=== PATIENT | male | born 1990 | race Caucasian/White ===

== ENCOUNTER 2019-03-01 17:06 | Inpatient (IN) | payer MEDICARE, OTHER ==
--- NOTE | 2019-03-01 17:17 | PDOC ---
Attending Attestation - Resident Resident Name: Kenyatta Finley - ED Attending Attestation I have performed the following: I have examined & evaluated the patient, The case was reviewed & discussed with the resident, I agree w/resident's findings & plan, Exceptions are as noted - HPI HPI: 03/01/19 18:57 Patient is a 28-year-old male whose chief complaint is "constipation". He states that although he is having bowel movements, he is not adequately emptying himself. He is getting intermittent lower abdominal pain as well. He is somewhat vague and unclear in describing his symptoms. He admits to intermittent constipation in the past. He states he had "colitis" 3 years ago and had colonoscopy, CT scan, and ultrasound. However, he does not know anything else about his diagnosis and does not recall any treatment. He has had no nausea or vomiting and he has eating normally. He has had no hematemesis melena or bloody stool. After taking Dulcolax today, he had 2 watery bowel movements, but again complains that he did not feel "empty" afterwards. - Physicial Exam PE: 03/01/19 18:59 Physical exam: Afebrile with normal vital signs No pallor or icterus. ENT clear Abdomen nondistended. Bowel sounds normal. There is mild diffuse tenderness over the lower abdomen without guarding or rebound. There is no localization. No CVAT. Rectal exam performed by Dr. Finley was negative. Stool was mid brown. No blood or mucus. Sent for occult blood, which was negative. White blood count was 14,000. Potassium was slightly decreased at 3.4. CT scan is pending. Signed out to Dr. Grullon at [address] scan results. - Medical Decision Making 03/01/19 19:01 Assessment: Does not seem that constipation is the etiology of the patient's complaints. Symptoms described are consistent with IBS. With the elevated WBC , rule out atypical presentation of acute appendicitis Plan: CT and further evaluation depending on results. Signed out to Dr. Grullon [address]
--- NOTE | 2019-03-01 17:28 | PDOC ---
History of Present Illness - General Chief Complaint: Constipation Stated Complaint: CONSTIPATION Time Seen by Provider: 03/01/19 17:12 - History of Present Illness Initial Comments: 03/01/19 17:28 28 yo M PMH colitis, constipation, p/w abdominal pain. Reports that it initially began on Monday, patient went drinking, felt worse on Monday, took home mag citrate on Monday due to not remembering his last bowel movement, followed by lose stools for the next two days. Since Monday, patient reports regular bowel movements, but complains that he "does not feel like I am getting cleaned out". Further complains of low grade abdominal pain, comes in waves, suprapubic and RLQ. Specifically denies CP, SOB, fevers/chills, ALMAZAN, N/V, urinary changes, rectal bleeding, dark stools. Past History - Past Medical History Allergies/Adverse Reactions: Allergies Allergy/AdvReac Type Severity Reaction Status Date / Time No Known Allergies Allergy Unverified 03/01/19 17:08 Home Medications: Ambulatory Orders NK [No Known Home Medication] 03/01/19 Review of Systems - Review of Systems Constitutional: No: Chills, Diaphoresis, Fever HEENTM: No: Recent change in vision, Double Vision, Hearing Loss, Throat Pain, Difficulty Swallowing Respiratory: No: Cough, Orthopnea, Shortness of Breath Cardiac (ROS): No: Chest Pain, Edema, Irregular Heart Rate, Lightheadedness, Palpitations, Chest Tightness ABD/GI: Yes: Constipated, Diarrhea. No: Abdominal Distended, Abd. Pain w/ defecation, Blood Streaked Bowels, Nausea, Vomiting : No: Flank Pain Musculoskeletal: No: Back Pain, Muscle Pain, Muscle Weakness Neurological: No: Headache, Numbness, Tingling, Weakness *Physical Exam - Physical Exam Comments: 03/01/19 17:31 Gen: well-developed, well-nourished, NAD Neuro: AAOX4, CN II-XII intact, FTN intact, EOMI, PERRLA, 5/5 strength, SILT HEENT: atraumatic, normocephalic Neck: trachea midline, supple CV: tachycardic in 100s, regular rhythm, no murmurs, rubs, or gallops Pulm: CTA b/l, no wheezing Abd: soft, non-distended, mild ttp in RLQ and suprapubic regions MSK: full ROM, intact pulses Extr: no edema, no deformities Skin: warm, dry ED Treatment Course - LABORATORY CBC & Chemistry Diagram: 03/02/19 07:30 03/02/19 07:30 Medical Decision Making - Medical Decision Making 03/01/19 17:32 Concerning for colitis v appendicitis v UTI v laxative overuse. - CBC, CMP - stool guaiac - UA/UC - reassess 03/01/19 18:02 WBC 14.2, K 3.4, Cr 1.1. Will give 20 mEQ POP K-Dur, order CT abd/pelvis w/ contrast. Discharge - Discharge Information Problems reviewed: Yes Clinical Impression/Diagnosis: Diverticulitis Condition: Stable - Follow up/Referral - Patient Discharge Instructions - Post Discharge Activity
[2019-03-01] MEDS ORDERED: ACETAMINOPHEN 1000 MG/100 ML VIAL (NON FORMULARY) IVPB ONE (17:33)
[2019-03-01] MEDS ORDERED: ACETAMINOPHEN 500 MG TABLET (FP) PO ONE (17:34)
[2019-03-01] MEDS ORDERED: ACETAMINOPHEN 325 MG TABLET (FP) ONE (17:38)
[2019-03-01 17:51] LABS: BASO % 0.4 % (0-2.0); EOS % 0.3 % (0-4.5); HEMATOCRIT 50.6 % (35.4-49); HEMOGLOBIN 17.4 GM/dl (11.7-16.9); LYMPH % 8.2 % (8-40); MCH 31.6 pg (25.7-33.7); MCHC 34.3 g/dl (32.0-35.9); MEAN CELL VOLUME 92.3 fl (80-96); MEAN PLT VOLUME 9.3 fl (7.5-11.1); MONO % 5.7 % (3.8-10.2); NEUT % 85.4 % (42.8-82.8); PLATELET COUNT 265 K/MM3 (134-434); RBC 5.49 M/mm3 (4.00-5.60); RDW 11.9 % (11.9-15.9); WHITE BLOOD COUNT 14.2 K/mm3 (4.0-10.8)
[2019-03-01 17:59] LABS: PHOSPHOROUS 3.1 mg/dl (2.5-4.9)
[2019-03-01 18:00] LABS: ALBUMIN 4.8 g/dl (3.4-5.0); BILIRUBIN,TOTAL 1.6 mg/dl (0.2-1); CALCIUM 9.7 mg/dl (8.5-10); CREATININE 1.1 mg/dl (0.55-1.3); POTASSIUM 3.4 mmol/L (3.5-5.1); TOT PROT 8.8 g/dl (6.4-8.2)
[2019-03-01] MEDS ORDERED: POTASSIUM CHLORIDE TABS 20 MEQ TABLET.ER (FP) PO ONE ×2 (18:01→18:03)
--- NOTE | 2019-03-01 19:19 | PDOC ---
*Physical Exam - Vital Signs Last Vital Signs Temp Pulse Resp BP Pulse Ox 98.2 F 98 H 16 137/94 100 03/01/19 17:07 03/01/19 19:11 03/01/19 17:07 03/01/19 19:11 03/01/19 19:11 ED Treatment Course - LABORATORY CBC & Chemistry Diagram: 03/01/19 17:33 03/01/19 17:33 - ADDITIONAL ORDERS Additional order review: Laboratory Results 03/01/19 03/01/19 03/01/19 17:35 17:35 17:33 Sodium Potassium Chloride Carbon Dioxide Anion Gap BUN Creatinine Est GFR (CKD-EPI)AfAm Est GFR (CKD-EPI)NonAf Random Glucose Calcium Phosphorus 3.1 Magnesium 2.0 Total Bilirubin AST ALT Alkaline Phosphatase Total Protein Albumin Lipase 121 Urine Color Yellow Urine Appearance Clear Urine pH 5.5 Urine Protein Negative Urine Glucose (UA) Negative Urine Ketones 3+ H Urine Blood Negative Urine Nitrite Negative Urine Bilirubin 1+ H Urine Urobilinogen 0.2 Ur Leukocyte Esterase Negative Stool Occult Blood Negative 03/01/19 17:33 Sodium 137 Potassium 3.4 L Chloride 98 Carbon Dioxide 26 Anion Gap 13 BUN 15.0 Creatinine 1.1 Est GFR (CKD-EPI)AfAm 104.59 Est GFR (CKD-EPI)NonAf 90.24 Random Glucose 86 Calcium 9.7 Phosphorus Magnesium Total Bilirubin 1.6 H AST 16 ALT 18 Alkaline Phosphatase 91 Total Protein 8.8 H Albumin 4.8 Lipase Urine Color Urine Appearance Urine pH Urine Protein Urine Glucose (UA) Urine Ketones Urine Blood Urine Nitrite Urine Bilirubin Urine Urobilinogen Ur Leukocyte Esterase Stool Occult Blood 03/01/19 17:33 RBC 5.49 MCV 92.3 MCHC 34.3 RDW 11.9 MPV 9.3 Neutrophils % 85.4 H Lymphocytes % 8.2 Monocytes % 5.7 Eosinophils % 0.3 Basophils % 0.4 - Medications Given in the ED: ED Medications Discontinued Medications Generic Name Dose Route Start Last Admin Trade Name Freq PRN Reason Stop Dose Admin Acetaminophen 1,000 mg 03/01/19 17:33 03/01/19 18:57 Ofirmev Injection - IVPB 03/01/19 17:34 Not Given ONCE ONE Acetaminophen 975 mg 03/01/19 17:34 03/01/19 17:40 Tylenol - PO 03/01/19 17:35 975 mg ONCE ONE Administration Potassium Chloride 20 meq 03/01/19 18:01 03/01/19 18:05 K-Dur - PO 03/01/19 18:02 20 meq ONCE ONE Administration ED Progress Note - Progress Note Progress Note: 03/01/19 19:19 This is a 28-year-old male whose care was transferred to nd from Dr. Vivian corona at 1900 hrs. Patient comes in complaining of lower abdominal pain. Patient did have an elevated white count and a CAT scan was done but is pending. We will follow-up results of CAT scan 03/01/19 20:17 CAT scan shows diverticulitis with microperforation Patient given Zosyn IV fluids and will be admitted 03/01/19 20:[address] Fernandez who will consult on the patient. Dr. Fernandez recommends that patient be admitted to the hospitalist service, be given Zosyn, ID consult obtained for tomorrow to continue the Zosyn, and n.p.o. Discharge - Discharge Information Problems reviewed: Yes Clinical Impression/Diagnosis: Diverticulitis Condition: Stable - Admission Yes - Follow up/Referral - Patient Discharge Instructions - Post Discharge Activity
[2019-03-01] MEDS ORDERED: KETOROLAC TROMETHAMINE 60 MG/2 ML VIAL IM ONE (19:47)
[2019-03-01] MEDS ORDERED: PIPERACILLIN/TAZOB 4.5 GM 4.5 GM in DEXTROSE 5%-WATER 100 ML IVPB ONE (20:17)
[2019-03-01] MEDS ORDERED: PIPERACILLIN/TAZOBACTAM 4.5 GM VIAL IVPB ONE (20:19)
[2019-03-01] MEDS ORDERED: SODIUM CHLORIDE 1,000 ML IV ONE (20:19)
[2019-03-01] MEDS ORDERED: DEXTROSE 5%-0.45% SALINE 1,000 ML IV SCH (21:15)
--- NOTE | 2019-03-01 22:38 | HP ---
CHIEF COMPLAINT: Lower Abdominal Pain, Constipation PCP: HISTORY OF PRESENT ILLNESS: This is a 28 y/o man with a PMHx of ?Colitis (3-4 yrs ago) Constipation. Who presents to the ED with intermittent lower abdominal pain with constipation started last weekend. Patient reports being constipated and feeling bloated for several days. He reports taking a laxative and increasing his fiber intake with minimal results-small amount of stool. Patient reports having continued lower abdominal pressure, worse with movement. Patient denies melena, hematochezia. Patient denies fever, chills, cough, SOB, CP, palpitations, N/V, dysuria. ER course was notable for: (1) CTAP-Acute Sigmoid Diverticulitis with localized perforation, No abscess, diffuse hepatic steatosis (2) WBC- 14.2 (3) K- 3.4 Recent Travel: None PAST MEDICAL HISTORY: See HPI PAST SURGICAL HISTORY: Left leg muscle repair (childhood) Social History: Smoking: Denies Alcohol: Socially Drugs: Denies Allergies No Known Allergies Allergy (Unverified 03/01/19 17:08) HOME MEDICATIONS: Home Medications Medication Instructions Recorded NK [No Known Home Medication] 03/01/19 REVIEW OF SYSTEMS CONSTITUTIONAL: Absent: fever, chills, diaphoresis, generalized weakness, malaise, loss of appetite, weight change HEENT: Absent: rhinorrhea, nasal congestion, throat pain, throat swelling, difficulty swallowing, mouth swelling, ear pain, eye pain, visual changes CARDIOVASCULAR: Absent: chest pain, syncope, palpitations, irregular heart rate, lightheadedness , peripheral edema RESPIRATORY: Absent: cough, shortness of breath, dyspnea with exertion, orthopnea, wheezing, stridor, hemoptysis GASTROINTESTINAL: abdominal pain, constipation Absent: abdominal distension, nausea, vomiting, diarrhea, melena, hematochezia GENITOURINARY: Absent: dysuria, frequency, urgency, hesitancy, hematuria, flank pain, genital pain MUSCULOSKELETAL: Absent: myalgia, arthralgia, joint swelling, back pain, neck pain SKIN: Absent: rash, itching, pallor HEMATOLOGIC/IMMUNOLOGIC: Absent: easy bleeding, easy bruising, lymphadenopathy, frequent infections ENDOCRINE: Absent: unexplained weight gain, unexplained weight loss, heat intolerance, cold intolerance NEUROLOGIC: Absent: headache, focal weakness or paresthesias, dizziness, unsteady gait, seizure, mental status changes, bladder or bowel incontinence PSYCHIATRIC: Absent: anxiety, depression, suicidal or homicidal ideation, hallucinations. PHYSICAL EXAMINATION Vital Signs - 24 hr 03/01/19 03/01/19 17:07 19:11 Temperature 98.2 F Pulse Rate 102 H Pulse Rate [ 98 H Left] Respiratory 16 Rate Blood Pressure 138/100 Blood Pressure 137/94 [Right Arm] O2 Sat by Pulse 100 100 Oximetry (%) GENERAL: Awake, alert, and fully oriented, in no acute distress. HEAD: Normal with no signs of trauma. EYES: Pupils equal, round and reactive to light, extraocular movements intact, sclera anicteric, conjunctiva clear. No lid lag. EARS, NOSE, THROAT: Dry mucous membranes. Ears normal, nares patent, oropharynx clear without exudates. NECK: Normal range of motion, supple without lymphadenopathy, JVD, or masses. LUNGS: Breath sounds equal, clear to auscultation bilaterally. No wheezes, and no crackles. No accessory muscle use. HEART: Regular rate and rhythm, normal S1 and S2 without murmur, rub or gallop. ABDOMEN: Tenderness LLQ, hypoactive bowel sounds. Soft, not distended, no guarding, no rebound, no masses. No hepatomegaly or splenomegaly. MUSCULOSKELETAL: Normal range of motion at all joints. No bony deformities or tenderness. No CVA tenderness. UPPER EXTREMITIES: 2+ pulses, warm, well-perfused. No cyanosis. No clubbing. No peripheral edema. LOWER EXTREMITIES: 2+ pulses, warm, well-perfused. No calf tenderness. No peripheral edema. NEUROLOGICAL: Cranial nerves II-XII intact. Normal speech. Gait not observed. PSYCHIATRIC: Cooperative. Good eye contact. Appropriate mood and affect. SKIN: Warm, dry, normal turgor, no rashes or lesions noted, normal capillary refill. Laboratory Results - last 24 hr 03/01/19 03/01/19 03/01/19 17:33 17:33 17:33 WBC 14.2 H RBC 5.49 Hgb 17.4 H Hct 50.6 H MCV 92.3 MCH 31.6 MCHC 34.3 RDW 11.9 Plt Count 265 MPV 9.3 Absolute Neuts (auto) 12.1 Neutrophils % 85.4 H Lymphocytes % 8.2 Monocytes % 5.7 Eosinophils % 0.3 Basophils % 0.4 Sodium 137 Potassium 3.4 L Chloride 98 Carbon Dioxide 26 Anion Gap 13 BUN 15.0 Creatinine 1.1 Est GFR (CKD-EPI)AfAm 104.59 Est GFR (CKD-EPI)NonAf 90.24 Random Glucose 86 Calcium 9.7 Phosphorus 3.1 Magnesium 2.0 Total Bilirubin 1.6 H AST 16 ALT 18 Alkaline Phosphatase 91 Total Protein 8.8 H Albumin 4.8 Lipase 121 Urine Color Urine Appearance Urine pH Urine Protein Urine Glucose (UA) Urine Ketones Urine Blood Urine Nitrite Urine Bilirubin Urine Urobilinogen Ur Leukocyte Esterase Stool Occult Blood 03/01/19 03/01/19 17:35 17:35 WBC RBC Hgb Hct MCV MCH MCHC RDW Plt Count MPV Absolute Neuts (auto) Neutrophils % Lymphocytes % Monocytes % Eosinophils % Basophils % Sodium Potassium Chloride Carbon Dioxide Anion Gap BUN Creatinine Est GFR (CKD-EPI)AfAm Est GFR (CKD-EPI)NonAf Random Glucose Calcium Phosphorus Magnesium Total Bilirubin AST ALT Alkaline Phosphatase Total Protein Albumin Lipase Urine Color Yellow Urine Appearance Clear Urine pH 5.5 Urine Protein Negative Urine Glucose (UA) Negative Urine Ketones 3+ H Urine Blood Negative Urine Nitrite Negative Urine Bilirubin 1+ H Urine Urobilinogen 0.2 Ur Leukocyte Esterase Negative Stool Occult Blood Negative ASSESSMENT/PLAN: This is a 28 y/o man with no PMHx. Admitted for Acute Diverticulitis, for further evaluation of their emergent condition. Plan: See Problem List FEN D51/2NS@100ml/hr K repleted, continue to monitor NPO DVT ppx OOB SCDs Code Status: Full Code Dispo: Requires Inpatient Care Family Medical History Family History: Unremarkable Problem List - Problem (1) Diverticulitis Assessment/Plan: CTAP report- Acute Sigmoid Diverticulitis with localized perforation. No abscess , diffuse hepatic steatosis Appreciate Surgical consult- notified and aware, per Dr. Dior. Rich initiated in ED, will continue Appreciate ID consult NPO Continue IVFs Ofirmev prn Monitor CBC, BMP Monitor vitals Code(s): K57.92 - DVTRCLI OF INTEST, PART UNSP, W/O PERF OR ABSCESS W/O BLEED Visit type - Emergency Visit Emergency Visit: Yes ED Registration Date: 03/01/19 Care time: The patient presented to the Emergency Department on the above date and was hospitalized for further evaluation of their emergent condition. - New Patient This patient is new to me today: Yes Date on this admission: 03/01/19 - Critical Care Critical Care patient: No
[2019-03-01 23:41] VITALS: BMI 22.5
[2019-03-02] MEDS ORDERED: ACETAMINOPHEN 1000 MG/100 ML VIAL (NON FORMULARY) IVPB PRN (00:01)
[2019-03-02] MEDS ORDERED: PIPERACILLIN/TAZOBACTAM 3.375 GM VIAL IVPB ONE ×3 (00:20→17:59)
[2019-03-02] MEDS ORDERED: DEXTROSE 5%-WATER - 50 ML IVPB ONE ×3 (00:20→17:59)
[2019-03-02] MEDS: PIPERACILLIN/TAZOB 3.375 GM 3.375 GM in DEXTROSE 5%-WATER - 50 ML IVPB SCH ×3 (02:13→18:04)
[2019-03-02 08:25] LABS: BASO % 0.3 % (0-2.0); CALCIUM 8.5 mg/dl (8.5-10); CREATININE 1.1 mg/dl (0.55-1.3); EOS % 0.7 % (0-4.5); HEMATOCRIT 39.3 % (35.4-49); HEMOGLOBIN 13.7 GM/dl (11.7-16.9); LYMPH % 11.4 % (8-40); MCH 31.9 pg (25.7-33.7); MCHC 34.7 g/dl (32.0-35.9); MEAN CELL VOLUME 91.8 fl (80-96); MEAN PLT VOLUME 9.4 fl (7.5-11.1); MONO % 9.1 % (3.8-10.2); NEUT % 78.5 % (42.8-82.8); PLATELET COUNT 207 K/MM3 (134-434); POTASSIUM 3.6 mmol/L (3.5-5.1); RBC 4.28 M/mm3 (4.00-5.60); RDW 11.9 % (11.9-15.9); WHITE BLOOD COUNT 10.2 K/mm3 (4.0-10.8)
[2019-03-02 10:04] LABS: ALBUMIN 3.4 g/dl (3.4-5.0); BILIRUBIN,DIRECT 0.3 mg/dL (0.0-0.2); TOT PROT 6.3 g/dl (6.4-8.2)
--- NOTE | 2019-03-02 11:55 | PN ---
Progress Note (short form) - Note Progress Note: surgery pt seen and examined. full consult dicated. 28 m with possible colitis history , history of blood in stool, colonoscopy 3 years ago, presents with microperforation of sigmoid colon. wbc normal and no fever on zosyn abd- soft, minimal llq tenderness Plan- pt declines acute surgical intervention. cont medical managment. recommend 5 days iv zosyn and 1 week po augmentin to follow. would keep npo till Monday. can start full liquids then if no tenderness, wbc nml, and afebrile. needs colonoscopy in 6 weeks. would not recommend elective diverticular surgery with diagnosis in doubt in a patient this young.
--- NOTE | 2019-03-02 11:57 | PN ---
Progress Note, Physician History of Present Illness: 28 y.o. male presents with c/o lower abdominal pain for the past 1 wk. He states that he has been feeling constipated and has not been having substantial bowel movements despite use of stool softeners. Describes the pain as 5/10 intensity and worse with movement. Denies episodes of n/v and has not been having fever/chills. Reports having "colitis" several years ago but specifics are unclear. In the ER Pt was noted to have wbc of 14.2K and CT A/P findings suggest sigmoid diverticulitis with localized perforation. Currently he is alert , without distress. He has no other complaints. - Current Medication List Current Medications: Active Medications Acetaminophen (Ofirmev Injection -) 1,000 mg IVPB Q6H PRN PRN Reason: PAIN LEVEL 6-10 Dextrose/Sodium Chloride (D5-1/2ns -) 1,000 mls @ 125 mls/hr IV ASDIR DALTON Last Admin: 03/01/19 22:15 Dose: 125 mls/hr Piperacillin Sod/Tazobactam (Sod 3.375 gm/ Dextrose) 50 mls @ 100 mls/hr IVPB Q8H-IV DALTON; Protocol - Objective Vital Signs: Vital Signs Temperature 98.5 F 03/02/19 06:36 Pulse Rate 91 H 03/02/19 06:36 Respiratory Rate 18 03/02/19 06:36 Blood Pressure 119/66 03/02/19 06:36 O2 Sat by Pulse Oximetry (%) 100 03/01/19 22:00 Labs: CBC, BMP 03/02/19 07:30 03/02/19 07:30
--- NOTE | 2019-03-02 12:04 | CON.ID ---
Consult - History of Present Illness History of Present Illness: 28 y.o. male presents with c/o lower abdominal pain for the past 1 wk. He states that he has been feeling constipated and has not been having substantial bowel movements despite use of stool softeners. Describes the pain as 5/10 intensity and worse with movement. Denies episodes of n/v and has not been having fever/chills. Reports having "colitis" several years ago and had workup done but specifics are unclear. In the ER Pt was noted to have wbc of 14.2K and CT A/P findings suggest sigmoid diverticulitis with localized perforation. Currently he is alert, without distress. He has no other complaints. 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: Alzheimer's, CVA, Dementia, Migraine, Multiple Sclerosis, Peripheral Neuropathy, Parkinson's, Seizure, Syncope, TIA, Vertigo, Other Cardio/Vascular: No: AFIB, Aneurysm, Aortic Insufficiency, Aortic Stenosis, CAD , CHF, Deep Vein Thrombosis, HTN, Hyperlipdemia, IA, Mitral Insufficiency, Mitral Stenosis, Murmur, Pulmonary Hypertension, Other Pulmonary: No: Asthma, Bronchitis, Cancer, COPD, O2 Dependent, Pneumonia, Previously Intubated, Pulmonary Embolus, Pulmonary Fibrosis, Sleep Apnea, Other Gastrointestinal: Yes: Other ("colitis") Hepatobiliary: No: Cirrhosis, Cholelithiasis, Cholecystitis, Choledocholithiasis , Hepatitis A, Hepatitis B, Hepatitis C, Other Renal/: No: Renal Failure, Renal Inusuff, BPH, Cancer, Hematuria, Hemodialysis , Neurogenic Bladder, Renal Calculi, UTI, Other Heme/Onc: No: Anemia, B12 Deficiency, Bleeding Disorder, Cancer, Current Chemotherapy, Current Radiation Therapy, Hemochromatosis, Hypercoaguable State, Myeloproliferative Synd, Sickle Cell Disease, Sickle Cell Trait, Thrombocytopenia, Other Infectious Disease: No: AIDS, C-Diff, Herpes Zoster, HIV, MRSA, STD's, Tuberculosis, VREF, Other Psych: No: Addictions, Anxiety, Bipolar, Depression, Panic, Psychosis, Schizophrenia, Other Musculoskeletal: No: Bursitis, Chronic low back pain, Hemiparesis, Hemiplegia, Osteoarthritis, Paraplegia, Other Rheumatology: No: Fibromyalgia, Gout, Lupus, Rheumatoid Arthritis, Sarcoidosis, Vasculitis, Other ENT: No: Allergic Rhinitis, Sinusitis, Other Endocrine: No: [place]'s Disease, Iliana's Disease, Diabetes Insipidus, Diabetes Mellitus, Hyperparathyroidism, Hyperthyroidism, Hypothyroidism, Osteopenia, SIADH, Other Dermatology: No: Basal Cell, Cellulitis, Eczema, Melanoma, Psoriasis, Squamous Cell, Other - Past Surgical History Past Surgical History: No: None, AAA Repair, AICD, Amputation, Appendectomy, Arthrosocopy, AV Fistula/Graft, Bariatric Surgery, Breast Biopsy, Bypass, CABG, Carotid Endarterectomy, Cataract Removal, Cholecystectomy, Colectomy, Colonoscopy, Colostomy, Craniotomy, , Cystectomy, Hernia Repair, Hysterectomy, Ileal Conduit, Ileosotomy, Joint Replacement, Kidney Transplant, Laminectomy, Liver Transplant, Mastectomy, Nephrectomy, Oopherectomy, Orchiectomy, Permanent Pacemaker, Prostatectomy, Splenectomy, Stent, Thoracotomy , TURP, Tonsillectomy, Tubal Ligation, Upper Endoscopy, Valve Replacement, Vasectomy, Vein Stripping/Ligation - Alcohol/Substance Use Hx Alcohol Use: Yes (SOCIAL) - Smoking History Smoking history: Never smoked Home Medications - Allergies Allergies/Adverse Reactions: Allergies Allergy/AdvReac Type Severity Reaction Status Date / Time No Known Allergies Allergy Unverified 03/01/19 17:08 - Home Medications Home Medications: Ambulatory Orders NK [No Known Home Medication] 03/01/19 Review of Systems - Review of Systems Constitutional: denies: No Symptoms, Chills, Diaphoresis, Fever, Lethargy, Loss of Appetite, Malaise, Night Sweats, Unintentional Wgt. Loss, Weakness, Other Eyes: denies: No Symptoms, Blind Spots, Blurred Vision, Double Vision, Eye Pain , Floaters, Photophobia, Recent Change in Vision, Other HENT: denies: No Symptoms, Difficult Swallowing, Ear Discharge, Ear Pain, Epistaxis, Gingival Bleeding, Hearing Loss, Mouth Swelling, Nasal Congestion, Ocular Prosthesis, Throat Pain, Toothache, Ringing in Ears, Other Neck: denies: No Symptoms, Decreased ROM, Lumps, Pain on Movement, Stiffness, Swollen Glands, Tenderness, Other Cardiovascular: denies: No Symptoms, Chest Pain, Edema, Palpitations, Shortness of Breath, Other Respiratory: denies: No Symptoms, Cough, Exercise Intolerance, Hemoptysis, Orthopnea, PND, Snoring, SOB, SOB on Exertion, Wheezing, Other Gastrointestinal: reports: Abdominal Pain, Bloating Genitourinary: denies: No Symptoms, Burning, Discharge, Dysuria, Flank Pain, Frequency, Hematuria, Incontinence, Lesions, Menses, Pain, Testicular Mass, Testicular Pain, Testicular Swelling, Urgency, Vaginal Bleeding, Other Breasts: denies: No Symptoms Reported, See HPI, Breast Implants, Discharge from Nipple, Lumps, Pain, Skin Changes, Other Musculoskeletal: denies: No Symptoms, Back Pain, Crepitus, Decreased ROM, Extremity Pain, Joint Pain, Joint Swelling, Muscle Pain, Muscle Cramps, Muscle Weakness, Other Integumentary: denies: No Symptoms, Blister, Bruising, Change in Color, Eczema, Erythema, Incision, Lesions, Lump, Pallor, Pruritis, Rash, Wound, Other Neurological: denies: No Symptoms, Change in LOC, Change in Speech, Confusion, Dizziness, Headache, Incoordination, Numbness, Parasthesia, Pre-Existing Deficit , Seizure, Syncope, Tremors, Unsteady Gait, Weakness, Other Endocrine: denies: No Symptoms, Excessive Sweating, Flushing, Increased Hunger, Increased Thirst, Intolerance to Cold, Intolerance to Heat, Unexplained Weight Gain, Unexplained Weight Loss, Other Hematology/Lymphatic: denies: No Symptoms, Easily Bruised, Excessive Bleeding, Swollen Glands, Other Psychiatric: denies: No Symptoms, Altered Sleep Pattern, Anxiety, Depression, Hallucinations, Panic, Paranoia, Suicidal, Other Physical Exam Vital Signs: Vital Signs Temperature 98.5 F 03/02/19 06:36 Pulse Rate 91 H 03/02/19 06:36 Respiratory Rate 18 03/02/19 06:36 Blood Pressure 119/66 03/02/19 06:36 O2 Sat by Pulse Oximetry (%) 100 03/01/19 22:00 Constitutional: Yes: Well Nourished, No Distress, Calm Eyes: Yes: Conjunctiva Clear, EOM Intact HENT: Yes: Atraumatic Neck: Yes: Supple Cardiovascular: Yes: Regular Rate and Rhythm Respiratory: Yes: CTA Bilaterally Gastrointestinal: Yes: Soft, Hyperactive Bowel Sounds, Tenderness (minimal lower abd) Renal/: Yes: WNL Musculoskeletal: Yes: WNL Extremities: Yes: WNL Edema: No Peripheral Pulses WNL: Yes Integumentary: Yes: WNL Neurological: Yes: Alert, Oriented Labs: CBC, BMP 03/02/19 07:30 03/02/19 07:30 Laboratory Tests 03/01/19 03/01/19 03/01/19 17:33 17:33 17:33 WBC 14.2 H RBC 5.49 Hgb 17.4 H Hct 50.6 H MCV 92.3 MCH 31.6 MCHC 34.3 RDW 11.9 Plt Count 265 MPV 9.3 Absolute Neuts (auto) 12.1 Neutrophils % 85.4 H Lymphocytes % 8.2 Monocytes % 5.7 Eosinophils % 0.3 Basophils % 0.4 Sodium 137 Potassium 3.4 L Chloride 98 Carbon Dioxide 26 Anion Gap 13 BUN 15.0 Creatinine 1.1 Est GFR (CKD-EPI)AfAm 104.59 Est GFR (CKD-EPI)NonAf 90.24 Random Glucose 86 Calcium 9.7 Phosphorus 3.1 Magnesium 2.0 Total Bilirubin 1.6 H Direct Bilirubin AST 16 ALT 18 Alkaline Phosphatase 91 Total Protein 8.8 H Albumin 4.8 Lipase 121 Urine Color Urine Appearance Urine pH Urine Protein Urine Glucose (UA) Urine Ketones Urine Blood Urine Nitrite Urine Bilirubin Urine Urobilinogen Ur Leukocyte Esterase Stool Occult Blood 03/01/19 03/01/19 03/02/19 17:35 17:35 07:30 WBC 10.2 RBC 4.28 Hgb 13.7 Hct 39.3 D MCV 91.8 MCH 31.9 MCHC 34.7 RDW 11.9 Plt Count 207 D MPV 9.4 Absolute Neuts (auto) 8.0 Neutrophils % 78.5 Lymphocytes % 11.4 D Monocytes % 9.1 Eosinophils % 0.7 D Basophils % 0.3 Sodium Potassium Chloride Carbon Dioxide Anion Gap BUN Creatinine Est GFR (CKD-EPI)AfAm Est GFR (CKD-EPI)NonAf Random Glucose Calcium Phosphorus Magnesium Total Bilirubin Direct Bilirubin AST ALT Alkaline Phosphatase Total Protein Albumin Lipase Urine Color Yellow Urine Appearance Clear Urine pH 5.5 Urine Protein Negative Urine Glucose (UA) Negative Urine Ketones 3+ H Urine Blood Negative Urine Nitrite Negative Urine Bilirubin 1+ H Urine Urobilinogen 0.2 Ur Leukocyte Esterase Negative Stool Occult Blood Negative 03/02/19 03/02/19 07:30 07:30 WBC RBC Hgb Hct MCV MCH MCHC RDW Plt Count MPV Absolute Neuts (auto) Neutrophils % Lymphocytes % Monocytes % Eosinophils % Basophils % Sodium 137 Potassium 3.6 Chloride 104 Carbon Dioxide 24 Anion Gap 9 BUN 9.0 Creatinine 1.1 Est GFR (CKD-EPI)AfAm 104.59 Est GFR (CKD-EPI)NonAf 90.24 Random Glucose 112 H Calcium 8.5 Phosphorus Magnesium Total Bilirubin 1.0 Direct Bilirubin 0.3 H AST 13 L ALT 13 Alkaline Phosphatase 65 D Total Protein 6.3 L Albumin 3.4 Lipase Urine Color Urine Appearance Urine pH Urine Protein Urine Glucose (UA) Urine Ketones Urine Blood Urine Nitrite Urine Bilirubin Urine Urobilinogen Ur Leukocyte Esterase Stool Occult Blood Imaging - Results Cat Scan: Report Reviewed Problem List - Problems (1) Diverticulitis Code(s): K57.92 - DVTRCLI OF INTEST, PART UNSP, W/O PERF OR ABSCESS W/O BLEED Assessment/Plan 28 y.o. male presents with c/o lower abdominal pain x 1 wk Acute sigmoid diverticulitis with localized perforation -- Continue Zosyn IV -- wbc trended down -- Pt is NPO -- Surgery following continue close monitoring Will follow Thank you
--- NOTE | 2019-03-02 12:25 | PN ---
Physical Exam: SUBJECTIVE: Patient seen and examined at bedside. Has mild mid and left lower quadrant abdominal pain. No nausea, vomiting. OBJECTIVE: Vital Signs Period Temp Pulse Resp BP Sys/Squires Pulse Ox Last 24 Hr 97.8 F-98.5 F 83-102 16-18 119-138/66-100 99-100 GENERAL: The patient is awake, alert, and fully oriented, in no acute distress. LUNGS: Breath sounds equal, clear to auscultation bilaterally, no wheezes, no crackles, no accessory muscle use. HEART: Regular rate and rhythm, S1, S2 without murmur, rub or gallop. ABDOMEN: Soft, mildly teder mid and left lower abdomen, very active bowel sounds no guarding, no rebound EXTREMITIES: 2+ pulses, warm, well-perfused, no edema. NEUROLOGICAL: Cranial nerves II through XII grossly intact. Normal speech Laboratory Results - last 24 hr 03/01/19 03/01/19 03/01/19 17:33 17:33 17:33 WBC 14.2 H RBC 5.49 Hgb 17.4 H Hct 50.6 H MCV 92.3 MCH 31.6 MCHC 34.3 RDW 11.9 Plt Count 265 MPV 9.3 Absolute Neuts (auto) 12.1 Neutrophils % 85.4 H Lymphocytes % 8.2 Monocytes % 5.7 Eosinophils % 0.3 Basophils % 0.4 Sodium 137 Potassium 3.4 L Chloride 98 Carbon Dioxide 26 Anion Gap 13 BUN 15.0 Creatinine 1.1 Est GFR (CKD-EPI)AfAm 104.59 Est GFR (CKD-EPI)NonAf 90.24 Random Glucose 86 Calcium 9.7 Phosphorus 3.1 Magnesium 2.0 Total Bilirubin 1.6 H Direct Bilirubin AST 16 ALT 18 Alkaline Phosphatase 91 Total Protein 8.8 H Albumin 4.8 Lipase 121 Urine Color Urine Appearance Urine pH Urine Protein Urine Glucose (UA) Urine Ketones Urine Blood Urine Nitrite Urine Bilirubin Urine Urobilinogen Ur Leukocyte Esterase Stool Occult Blood 03/01/19 03/01/19 03/02/19 17:35 17:35 07:30 WBC 10.2 RBC 4.28 Hgb 13.7 Hct 39.3 D MCV 91.8 MCH 31.9 MCHC 34.7 RDW 11.9 Plt Count 207 D MPV 9.4 Absolute Neuts (auto) 8.0 Neutrophils % 78.5 Lymphocytes % 11.4 D Monocytes % 9.1 Eosinophils % 0.7 D Basophils % 0.3 Sodium Potassium Chloride Carbon Dioxide Anion Gap BUN Creatinine Est GFR (CKD-EPI)AfAm Est GFR (CKD-EPI)NonAf Random Glucose Calcium Phosphorus Magnesium Total Bilirubin Direct Bilirubin AST ALT Alkaline Phosphatase Total Protein Albumin Lipase Urine Color Yellow Urine Appearance Clear Urine pH 5.5 Urine Protein Negative Urine Glucose (UA) Negative Urine Ketones 3+ H Urine Blood Negative Urine Nitrite Negative Urine Bilirubin 1+ H Urine Urobilinogen 0.2 Ur Leukocyte Esterase Negative Stool Occult Blood Negative 03/02/19 03/02/19 07:30 07:30 WBC RBC Hgb Hct MCV MCH MCHC RDW Plt Count MPV Absolute Neuts (auto) Neutrophils % Lymphocytes % Monocytes % Eosinophils % Basophils % Sodium 137 Potassium 3.6 Chloride 104 Carbon Dioxide 24 Anion Gap 9 BUN 9.0 Creatinine 1.1 Est GFR (CKD-EPI)AfAm 104.59 Est GFR (CKD-EPI)NonAf 90.24 Random Glucose 112 H Calcium 8.5 Phosphorus Magnesium Total Bilirubin 1.0 Direct Bilirubin 0.3 H AST 13 L ALT 13 Alkaline Phosphatase 65 D Total Protein 6.3 L Albumin 3.4 Lipase Urine Color Urine Appearance Urine pH Urine Protein Urine Glucose (UA) Urine Ketones Urine Blood Urine Nitrite Urine Bilirubin Urine Urobilinogen Ur Leukocyte Esterase Stool Occult Blood Active Medications Generic Name Dose Route Start Last Admin Trade Name Freq PRN Reason Stop Dose Admin Acetaminophen 1,000 mg 03/02/19 00:01 Ofirmev Injection - IVPB Q6H PRN PAIN LEVEL 6-10 Dextrose/Sodium Chloride 1,000 mls @ 125 mls/hr 03/01/19 21:15 03/01/19 22:15 D5-1/2ns - IV 125 mls/hr ASDIR DALTON Administration Piperacillin Sod/Tazobactam 50 mls @ 100 mls/hr 03/02/19 18:00 Sod 3.375 gm/ Dextrose IVPB Q8H-IV DALTON Protocol ASSESSMENT/PLAN: 28 year-old male with a PMH significant for one previous episode of colitis x 4 years ago. Admitted for acute diverticulitis. Acute sigmoid diverticulitis with localized perforation --afebrile, leukocytosis has resolved --continue Zosyn --IV fluids --NPO --seen and evaluated by surgery, medical management for now FEN Fluids: D51/2NS@125mL/hr Electrolytes: replete as indicated Nutrition: NPO DVT prophylaxis: oob, ambulation, TEDs Dispo: continues to require inpatient care. Full code. Visit type - Emergency Visit Emergency Visit: Yes ED Registration Date: 03/01/19 Care time: The patient presented to the Emergency Department on the above date and was hospitalized for further evaluation of their emergent condition. - New Patient This patient is new to me today: Yes Date on this admission: 03/02/19 - Critical Care Critical Care patient: No
--- NOTE | 2019-03-02 13:01 | CONS ---
DATE OF CONSULTATION: 03/02/2019 REASON FOR CONSULTATION: Complicated diverticulitis. This is an emergency room consultation as requested by the emergency room physician. BRIEF HISTORY: This is a 28-year-old male who has been told he has colitis in the past. Had a colonoscopy approximately 3 years ago. Does not take any medication. He presents to [facility] complaining of lower abdominal pain. In the past he has had blood per stool. He describes not having any recent "flare-ups." While at the emergency room he was noted to have a white blood cell count of 14,000 and he had a CAT scan of his abdomen and pelvis which was suggestive of a microperforation in the sigmoid colon consistent with complicated diverticulitis. Patient was admitted to the hospital. He was placed on Zosyn antibiotic. Overnight his white blood cell count has returned to normal. He has had no fevers. He denies nausea. Denies vomiting. Did admit to having constipation and taking laxatives. PAST MEDICAL HISTORY: Otherwise negative. PAST SURGICAL HISTORY: A leg operation. SOCIAL HISTORY: Positive for occasional alcohol consumption. Negative for tobacco. ALLERGIES: He has no known drug allergies. MEDICATIONS: He takes no medications. REVIEW OF SYSTEMS:General: Denies fever or malaise. Cardiac: Denies chest pain or palpitations. Respiratory: Denies shortness of breath or wheeze. Gastrointestinal: As in HPI. Genitourinary: Denies dysuria. Musculoskeletal: Denies joint pain. Psychiatric: Denies anxiety, depression or hearing voices. PHYSICAL EXAMINATION: General: This is a thin 28-year-old male in no distress. Vital Signs: He is afebrile. His vital signs are stable. HEENT: His head is normocephalic. His sclerae are anicteric Neck: Supple. Chest: Clear. Abdomen: Soft. He has minimal left lower quadrant tenderness. He has no surgical scars. He has no hernias. Extremities: Have no edema. LABORATORY DATA: On review of his laboratory his white blood cell count is normal at 10.2. There is no shift. His chemistries are unremarkable with an albumin of 4.8 on admission. His lipase is normal. His urinalysis has positive ketones but otherwise unremarkable. IMAGING: As in HPI. ASSESSMENT: This is a 28-year-old male with a possible history of colitis with a colonoscopy at the age of 25 presents with constipation, abdominal pain and computed axial tomography evidence of a perforated sigmoid colon that the correctional supply supervisor feels may be diverticulitis. RECOMMENDATIONS: At this point the patient is clinically well. Although it is possible that it is perforated diverticulitis he may have a different underlying cause such as inflammatory bowel disease. I have offered the patient exploratory surgery with sigmoid colectomy and colostomy and he declines. He does not wish to have a colostomy. He is willing to delay diagnosis of his condition. At this point since he is doing well would continue intravenous antibiotics. Would recommend a minimum of 5 days of intravenous antibiotics while in the hospital. Since it is the weekend and he is being kept at a hospital that does not have operating room capabilities until Monday and any surgery would require transfer would recommend not starting diet until Monday morning. If he has no tenderness, if he remains afebrile and if his white blood cell count remains normal. At that point would start on a liquid diet. Ultimately he will need a colonoscopy in 6 weeks. He can consider eventual elective surgery if this is felt to be diverticulitis. However, in my opinion since this is not behaving as a complicated diverticulitis and since there is a possible history of colitis I would be loath to recommend a major elective operation with risk of complications when we are uncertain of the diagnosis or there may not be future recurrence. At this point recommend continued medical management. Will be available as needed. DO EVELIN MARTINS/[id number]
[2019-03-03] MEDS ORDERED: PIPERACILLIN/TAZOBACTAM 3.375 GM VIAL IVPB ONE ×4 (00:58→23:18)
[2019-03-03] MEDS ORDERED: DEXTROSE 5%-WATER - 50 ML IVPB ONE ×4 (00:59→23:18)
[2019-03-03] MEDS: PIPERACILLIN/TAZOB 3.375 GM 3.375 GM in DEXTROSE 5%-WATER - 50 ML IVPB SCH ×3 (01:31→17:41)
[2019-03-03 09:29] LABS: BASO % 0.6 % (0-2.0); EOS % 2.2 % (0-4.5); HEMATOCRIT 43.3 % (35.4-49); HEMOGLOBIN 14.3 GM/dl (11.7-16.9); MCH 30.9 pg (25.7-33.7); MEAN CELL VOLUME 93.4 fl (80-96); MEAN PLT VOLUME 9.8 fl (7.5-11.1); MONO % 8.9 % (3.8-10.2); NEUT % 69.3 % (42.8-82.8); PLATELET COUNT 210 K/MM3 (134-434); RBC 4.63 M/mm3 (4.00-5.60); RDW 11.9 % (11.9-15.9); WHITE BLOOD COUNT 8.1 K/mm3 (4.0-10.8)
[2019-03-03 09:36] LABS: ALBUMIN 3.4 g/dl (3.4-5.0); BILIRUBIN,TOTAL 0.7 mg/dl (0.2-1); CALCIUM 8.9 mg/dl (8.5-10); CREATININE 1.1 mg/dl (0.55-1.3); POTASSIUM 3.3 mmol/L (3.5-5.1); TOT PROT 6.6 g/dl (6.4-8.2)
[2019-03-03] MEDS ORDERED: POTASSIUM CHLORIDE ORAL LIQUID 20 MEQ/15 ML PO ONE (10:30)
--- NOTE | 2019-03-03 11:17 | PN ---
Physical Exam: SUBJECTIVE: Patient seen and examined at bedside. LLQ pain is better, not completely gone. OBJECTIVE: Vital Signs Period Temp Pulse Resp BP Sys/Squires Pulse Ox Last 24 Hr 97.5 F-99.1 F 84-99 17-19 113-131/68-79 99-100 GENERAL: The patient is awake, alert, and fully oriented, in no acute distress. LUNGS: Breath sounds equal, clear to auscultation bilaterally, no wheezes, no crackles, no accessory muscle use. HEART: Regular rate and rhythm, S1, S2 without murmur, rub or gallop. ABDOMEN: Soft, mild tenderness LLQ improved EXTREMITIES: 2+ pulses, warm, well-perfused, no edema. NEUROLOGICAL: Cranial nerves II through XII grossly intact. Normal speech Laboratory Results - last 24 hr 03/03/19 03/03/19 09:00 09:20 WBC 8.1 RBC 4.63 Hgb 14.3 Hct 43.3 MCV 93.4 MCH 30.9 MCHC 33.0 RDW 11.9 Plt Count 210 MPV 9.8 Absolute Neuts (auto) 5.7 Neutrophils % 69.3 Lymphocytes % 19.0 D Monocytes % 8.9 Eosinophils % 2.2 D Basophils % 0.6 Sodium 139 Potassium 3.3 L Chloride 105 Carbon Dioxide 26 Anion Gap 8 BUN 3.0 L Creatinine 1.1 Est GFR (CKD-EPI)AfAm 104.59 Est GFR (CKD-EPI)NonAf 90.24 Random Glucose 134 H Calcium 8.9 Magnesium 2.0 Total Bilirubin 0.7 AST 11 L ALT 12 L Alkaline Phosphatase 65 Total Protein 6.6 Albumin 3.4 Active Medications Generic Name Dose Route Start Last Admin Trade Name Freq PRN Reason Stop Dose Admin Acetaminophen 1,000 mg 03/02/19 00:01 Ofirmev Injection - IVPB Q6H PRN PAIN LEVEL 6-10 Dextrose/Sodium Chloride 1,000 mls @ 125 mls/hr 03/01/19 21:15 03/01/19 22:15 D5-1/2ns - IV 125 mls/hr ASDIR DALTON Administration Piperacillin Sod/Tazobactam 50 mls @ 100 mls/hr 03/02/19 18:00 03/03/19 09:13 Sod 3.375 gm/ Dextrose IVPB 100 mls/hr Q8H-IV DALTON Administration Protocol ASSESSMENT/PLAN 28 year-old male with a PMH significant for one previous episode of colitis x 4 years ago. Admitted for acute diverticulitis. Acute sigmoid diverticulitis with localized perforation --afebrile, leukocytosis resolved --continue Zosyn (day #2) --IV fluids --NPO --seen and evaluated by surgery, medical management for now --ID following FEN Fluids: D51/2NS@125mL/hr Electrolytes: replete as indicated Nutrition: NPO DVT prophylaxis: oob, ambulation, TEDs Dispo: continues to require inpatient care. Full code. Visit type - Emergency Visit Emergency Visit: Yes ED Registration Date: 03/01/19 Care time: The patient presented to the Emergency Department on the above date and was hospitalized for further evaluation of their emergent condition. - New Patient This patient is new to me today: No - Critical Care Critical Care patient: No
--- NOTE | 2019-03-03 13:31 | PN ---
Progress Note, Physician History of Present Illness: Pt states he feels well. Has not had a BM today. No significant abd pain. Family at bedside. - Current Medication List Current Medications: Active Medications Acetaminophen (Ofirmev Injection -) 1,000 mg IVPB Q6H PRN PRN Reason: PAIN LEVEL 6-10 Dextrose/Sodium Chloride (D5-1/2ns -) 1,000 mls @ 125 mls/hr IV ASDIR DALTON Last Admin: 03/01/19 22:15 Dose: 125 mls/hr Piperacillin Sod/Tazobactam (Sod 3.375 gm/ Dextrose) 50 mls @ 100 mls/hr IVPB Q8H-IV DALTON; Protocol Last Admin: 03/03/19 09:13 Dose: 100 mls/hr - Objective Vital Signs: Vital Signs Temperature 98.6 F 03/03/19 11:58 Pulse Rate 85 03/03/19 11:58 Respiratory Rate 18 03/03/19 11:58 Blood Pressure 118/74 03/03/19 11:58 O2 Sat by Pulse Oximetry (%) 97 03/03/19 11:58 Constitutional: Yes: No Distress, Calm Eyes: Yes: Conjunctiva Clear Cardiovascular: Yes: Regular Rate and Rhythm Respiratory: Yes: CTA Bilaterally Gastrointestinal: Yes: Normal Bowel Sounds, Soft, Tenderness (minimal LLQ) Genitourinary: Yes: WNL Integumentary: Yes: WNL Neurological: Yes: Alert, Oriented Labs: CBC, BMP 03/03/19 09:00 03/03/19 09:20 Laboratory Results - last 24 hr 03/03/19 03/03/19 09:00 09:20 WBC 8.1 RBC 4.63 Hgb 14.3 Hct 43.3 MCV 93.4 MCH 30.9 MCHC 33.0 RDW 11.9 Plt Count 210 MPV 9.8 Absolute Neuts (auto) 5.7 Neutrophils % 69.3 Lymphocytes % 19.0 D Monocytes % 8.9 Eosinophils % 2.2 D Basophils % 0.6 Sodium 139 Potassium 3.3 L Chloride 105 Carbon Dioxide 26 Anion Gap 8 BUN 3.0 L Creatinine 1.1 Est GFR (CKD-EPI)AfAm 104.59 Est GFR (CKD-EPI)NonAf 90.24 Random Glucose 134 H Calcium 8.9 Magnesium 2.0 Total Bilirubin 0.7 AST 11 L ALT 12 L Alkaline Phosphatase 65 Total Protein 6.6 Albumin 3.4 Microbiology 03/01/19 17:35 Urine - Urine Clean Catch Urine Culture - Final NO GROWTH OBTAINED Problem List - Problems (1) Diverticulitis Code(s): K57.92 - DVTRCLI OF INTEST, PART UNSP, W/O PERF OR ABSCESS W/O BLEED Assessment/Plan 28 y.o. male presents with c/o lower abdominal pain x 1 wk Acute sigmoid diverticulitis with localized perforation -- Continue IV antibiotics -- wbc is now normal, pain is controlled continue close monitoring
[2019-03-04] MEDS: PIPERACILLIN/TAZOB 3.375 GM 3.375 GM in DEXTROSE 5%-WATER - 50 ML IVPB SCH ×3 (02:03→17:50)
[2019-03-04] MEDS ORDERED: PIPERACILLIN/TAZOBACTAM 3.375 GM VIAL IVPB ONE ×3 (09:10→23:42)
[2019-03-04] MEDS ORDERED: DEXTROSE 5%-WATER - 50 ML IVPB ONE ×3 (09:12→23:42)
--- NOTE | 2019-03-04 10:26 | DS ---
Physical Exam: SUBJECTIVE: Patient seen and examined at bedside. Feeling well. Pain has resolved, some residual soreness. OBJECTIVE: Vital Signs Period Temp Pulse Resp BP Sys/Squires Pulse Ox Last 24 Hr 97.8 F-98.6 F 72-85 18-19 114-118/69-79 97-100 PHYSICAL EXAM GENERAL: The patient is awake, alert, and fully oriented, in no acute distress. LUNGS: Breath sounds equal, clear to auscultation bilaterally, no wheezes, no crackles, no accessory muscle use. HEART: Regular rate and rhythm, S1, S2 without murmur, rub or gallop. ABDOMEN: Soft, not tender, not distended EXTREMITIES: 2+ pulses, warm, well-perfused, no edema. NEUROLOGICAL: Cranial nerves II through XII grossly intact. Normal speech LABS CBCD WBC 8.1 K/mm3 (4.0-10.8) 03/03/19 09:00 RBC 4.63 M/mm3 (4.00-5.60) 03/03/19 09:00 Hgb 14.3 GM/dl (11.7-16.9) 03/03/19 09:00 Hct 43.3 % (35.4-49) 03/03/19 09:00 MCV 93.4 fl (80-96) 03/03/19 09:00 MCHC 33.0 g/dl (32.0-35.9) 03/03/19 09:00 RDW 11.9 % (11.9-15.9) 03/03/19 09:00 Plt Count 210 K/MM3 (134-434) 03/03/19 09:00 MPV 9.8 fl (7.5-11.1) 03/03/19 09:00 CMP Sodium 139 mmol/L (136-145) 03/03/19 09:20 Potassium 3.3 mmol/L (3.5-5.1) L 03/03/19 09:20 Chloride 105 mmol/L (98-107) 03/03/19 09:20 Carbon Dioxide 26 mmol/L (21-32) 03/03/19 09:20 Anion Gap 8 MMOL/L (8-16) 03/03/19 09:20 BUN 3.0 mg/dl (7-18) L 03/03/19 09:20 Creatinine 1.1 mg/dl (0.55-1.3) 03/03/19 09:20 Calcium 8.9 mg/dl (8.5-10) 03/03/19 09:20 Total Bilirubin 0.7 mg/dl (0.2-1) 03/03/19 09:20 AST 11 U/L (15-37) L 03/03/19 09:20 ALT 12 U/L (13-61) L 03/03/19 09:20 Alkaline Phosphatase 65 U/L (45-117) 03/03/19 09:20 Total Protein 6.6 g/dl (6.4-8.2) 03/03/19 09:20 Albumin 3.4 g/dl (3.4-5.0) 03/03/19 09:20 Date of Admission:03/01/19 Date of Discharge: 03/04/19 Pre hospital course 28 year-old male with a PMH significant for one previous episode of colitis x 4 years ago. Admitted for acute diverticulitis. Hospital course Acute sigmoid diverticulitis with localized perforation --afebrile, leukocytosis resolved --continue Zosyn --IV fluids --NPO --seen and evaluated by surgery, medical management for now FEN Fluids: D51/2NS@125mL/hr Electrolytes: replete as indicated Nutrition: NPO DVT prophylaxis: oob, ambulation, TEDs Dispo: continues to require inpatient care. Full code. Discharge Summary Problems reviewed: Yes Reason For Visit: DIVERTICULITIS Current Active Problems Diverticulitis (Acute) Condition: Improved - Instructions Diet, Activity, Other Instructions: Two prescriptions have been sent to your pharmacy, one for augmentin, one for metronidazole. Both are antibiotics. Take thse medications as directed. It is recommended you follow up with your upkeep mechanic, Dr. France, in [place] within 1-2 weeks of your discharge. You will likely need a colonoscopy in about 6 weeks. Return to the emergency department for any new or worsening symptoms. Referrals: Mrak France [Non Staff, Medical] - Disposition: HOME - Home Medications Comprehensive Discharge Medication List: Ambulatory Orders Amoxicillin/Potassium Clav [Augmentin 875-125 Tablet] 1 each PO BID #16 tablet 03/04/19 Metronidazole 500 mg PO TID #24 tablet 03/04/19 This patient is new to me today: No Emergency Visit: Yes ED Registration Date: 03/01/19 Care time: The patient presented to the Emergency Department on the above date and was hospitalized for further evaluation of their emergent condition. Critical Care patient: No - Discharge Referral Referred to [facility] No
--- NOTE | 2019-03-04 11:18 | PN ---
Physical Exam: SUBJECTIVE: Patient seen and examined. Feeling well. Pain has resolved, some residual soreness. OBJECTIVE: Vital Signs Period Temp Pulse Resp BP Sys/Squires Pulse Ox Last 24 Hr 97.8 F-98.6 F 72-85 - 114-118/69-79 97-100 GENERAL: The patient is awake, alert, and fully oriented, in no acute distress. LUNGS: Breath sounds equal, clear to auscultation bilaterally, no wheezes, no crackles, no accessory muscle use. HEART: Regular rate and rhythm, S1, S2 without murmur, rub or gallop. ABDOMEN: Soft, not tender, not distended EXTREMITIES: 2+ pulses, warm, well-perfused, no edema. NEUROLOGICAL: Cranial nerves II through XII grossly intact. Normal speech Active Medications Generic Name Dose Route Start Last Admin Trade Name Freq PRN Reason Stop Dose Admin Acetaminophen 1,000 mg 03/02/19 00:01 Ofirmev Injection - IVPB Q6H PRN PAIN LEVEL 6-10 Dextrose/Sodium Chloride 1,000 mls @ 125 mls/hr 03/01/19 21:15 03/01/19 22:15 D5-1/2ns - IV 125 mls/hr ASDIR DALTON Administration Piperacillin Sod/Tazobactam 50 mls @ 100 mls/hr 03/02/19 18:00 03/04/19 09:40 Sod 3.375 gm/ Dextrose IVPB 100 mls/hr Q8H-IV DALTON Administration Protocol ASSESSMENT/PLAN: 28 year-old male with a PMH significant for one previous episode of colitis x 4 years ago. Admitted for acute diverticulitis. Acute sigmoid diverticulitis with localized perforation --afebrile, leukocytosis resolved --continue Zosyn (day #4); will need 5 days IV antibiotics --IV fluids --clears --seen and evaluated by surgery, medical management for now --ID following FEN Fluids: D51/2NS@125mL/hr Electrolytes: replete as indicated Nutrition: clears DVT prophylaxis: oob, ambulation, TEDs Dispo: continues to require inpatient care. Full code. Visit type - Emergency Visit Emergency Visit: Yes ED Registration Date: 03/01/19 Care time: The patient presented to the Emergency Department on the above date and was hospitalized for further evaluation of their emergent condition. - New Patient This patient is new to me today: No - Critical Care Critical Care patient: No
--- NOTE | 2019-03-04 14:59 | PN ---
Progress Note, Physician History of Present Illness: stable improving - Current Medication List Current Medications: Active Medications Acetaminophen (Ofirmev Injection -) 1,000 mg IVPB Q6H PRN PRN Reason: PAIN LEVEL 6-10 Dextrose/Sodium Chloride (D5-1/2ns -) 1,000 mls @ 125 mls/hr IV ASDIR DALTON Last Admin: 03/01/19 22:15 Dose: 125 mls/hr Piperacillin Sod/Tazobactam (Sod 3.375 gm/ Dextrose) 50 mls @ 100 mls/hr IVPB Q8H-IV DALTON; Protocol Last Admin: 03/04/19 09:40 Dose: 100 mls/hr - Objective Vital Signs: Vital Signs Temperature 97.8 F 03/04/19 14:36 Pulse Rate 68 03/04/19 14:36 Respiratory Rate 18 03/04/19 14:36 Blood Pressure 118/71 03/04/19 14:36 O2 Sat by Pulse Oximetry (%) 100 03/04/19 14:36 Constitutional: Yes: No Distress, Calm Cardiovascular: Yes: S1, S2 Respiratory: Yes: Regular, CTA Bilaterally Gastrointestinal: Yes: Soft, Hypoactive Bowel Sounds Musculoskeletal: Yes: WNL Extremities: Yes: WNL Neurological: Yes: Alert, Oriented Psychiatric: Yes: Alert, Oriented Labs: CBC, BMP 03/03/19 09:00 03/03/19 09:20 Assessment/Plan Problem List - Problems (1) Diverticulitis Code(s): K57.92 - DVTRCLI OF INTEST, PART UNSP, W/O PERF OR ABSCESS W/O BLEED Assessment/Plan 28 y.o. male presents with c/o lower abdominal pain x 1 wk Acute sigmoid diverticulitis with localized perforation -- Continue IV antibiotics -- wbc is now normal, pain is controlled continue close monitoring
[2019-03-05] MEDS: PIPERACILLIN/TAZOB 3.375 GM 3.375 GM in DEXTROSE 5%-WATER - 50 ML IVPB SCH ×3 (01:17→17:09)
--- NOTE | 2019-03-05 06:09 | PN ---
Physical Exam: SUBJECTIVE: Patient seen and examined at bedside. Denies pain. Tolerating clears. OBJECTIVE: Vital Signs Period Temp Pulse Resp BP Sys/Squires Pulse Ox Last 24 Hr 97.5 F-98.7 F 68-82 18-18 108-118/67-79 99-100 GENERAL: The patient is awake, alert, and fully oriented, in no acute distress. LUNGS: Breath sounds equal, clear to auscultation bilaterally, no wheezes, no crackles, no accessory muscle use. HEART: Regular rate and rhythm, S1, S2 without murmur, rub or gallop. ABDOMEN: Soft, not tender, not distended EXTREMITIES: 2+ pulses, warm, well-perfused, no edema. NEUROLOGICAL: Cranial nerves II through XII grossly intact. Normal speech Active Medications Generic Name Dose Route Start Last Admin Trade Name Freq PRN Reason Stop Dose Admin Acetaminophen 1,000 mg 03/02/19 00:01 Ofirmev Injection - IVPB Q6H PRN PAIN LEVEL 6-10 Dextrose/Sodium Chloride 1,000 mls @ 125 mls/hr 03/01/19 21:15 03/01/19 22:15 D5-1/2ns - IV 125 mls/hr ASDIR DALTON Administration Piperacillin Sod/Tazobactam 50 mls @ 100 mls/hr 03/02/19 18:00 03/05/19 01:17 Sod 3.375 gm/ Dextrose IVPB 100 mls/hr Q8H-IV DALTON Administration Protocol ASSESSMENT/PLAN 28 year-old male with a PMH significant for one previous episode of colitis x 4 years ago. Admitted for acute diverticulitis. Acute sigmoid diverticulitis with localized perforation --afebrile, leukocytosis resolved --continue Zosyn (day #5); last dose tomorrow morning --seen and evaluated by surgery, medical management --ID following FEN Fluids: PO intake adequate Electrolytes: replete as indicated Nutrition: full liquids DVT prophylaxis: oob, ambulation, TEDs Dispo: continues to require inpatient care. Full code. Visit type - Emergency Visit Emergency Visit: Yes ED Registration Date: 03/01/19 Care time: The patient presented to the Emergency Department on the above date and was hospitalized for further evaluation of their emergent condition. - New Patient This patient is new to me today: No - Critical Care Critical Care patient: No
[2019-03-05 07:59] LABS: CALCIUM 8.7 mg/dl (8.5-10); CREATININE 1.2 mg/dl (0.55-1.3); POTASSIUM 3.3 mmol/L (3.5-5.1)
[2019-03-05] MEDS ORDERED: PIPERACILLIN/TAZOBACTAM 3.375 GM VIAL IVPB ONE ×2 (09:02→16:59)
[2019-03-05] MEDS ORDERED: DEXTROSE 5%-WATER - 50 ML IVPB ONE ×2 (09:03→16:59)
[2019-03-05] MEDS: POTASSIUM CHLORIDE TABS 20 MEQ TABLET.ER (FP) PO SCH ×2 (09:28→14:37)
--- NOTE | 2019-03-05 12:28 | PN ---
Progress Note, Physician History of Present Illness: stable improving - Current Medication List Current Medications: Active Medications Acetaminophen (Ofirmev Injection -) 1,000 mg IVPB Q6H PRN PRN Reason: PAIN LEVEL 6-10 Piperacillin Sod/Tazobactam (Sod 3.375 gm/ Dextrose) 50 mls @ 100 mls/hr IVPB Q8H-IV DALTON; Protocol Last Admin: 03/05/19 09:29 Dose: 100 mls/hr Potassium Chloride (K-Dur -) 40 meq PO Q6H DALTON Stop: 03/05/19 14:31 Last Admin: 03/05/19 09:28 Dose: 40 meq - Objective Vital Signs: Vital Signs Temperature 98.4 F 03/05/19 12:00 Pulse Rate 82 03/05/19 12:00 Respiratory Rate 17 03/05/19 12:00 Blood Pressure 122/82 03/05/19 12:00 O2 Sat by Pulse Oximetry (%) 100 03/05/19 12:00 Constitutional: Yes: No Distress, Calm Cardiovascular: Yes: S1, S2 Respiratory: Yes: Regular, CTA Bilaterally Gastrointestinal: Yes: Normal Bowel Sounds, Soft Musculoskeletal: Yes: WNL Extremities: Yes: WNL Labs: CBC, BMP 03/03/19 09:00 03/05/19 07:00 Assessment/Plan Problem List - Problems (1) Diverticulitis Code(s): K57.92 - DVTRCLI OF INTEST, PART UNSP, W/O PERF OR ABSCESS W/O BLEED Assessment/Plan 28 y.o. male presents with c/o lower abdominal pain x 1 wk Acute sigmoid diverticulitis with localized perforation continue current mgmt rest as per the team
[2019-03-06] MEDS ORDERED: DEXTROSE 5%-WATER - 50 ML IVPB ONE ×2 (00:02→09:29)
[2019-03-06] MEDS ORDERED: PIPERACILLIN/TAZOBACTAM 3.375 GM VIAL IVPB ONE ×2 (00:02→09:29)
[2019-03-06] MEDS: PIPERACILLIN/TAZOB 3.375 GM 3.375 GM in DEXTROSE 5%-WATER - 50 ML IVPB SCH ×2 (01:32→09:58)
[2019-03-06 06:29] VITALS: BP 107/66; PULSE 63; TEMP 97.9
--- NOTE | 2019-03-06 08:59 | DS ---
Physical Exam: SUBJECTIVE: Patient seen and examined sitting on edge of bed. OBJECTIVE: Vital Signs Period Temp Pulse Resp BP Sys/Squires Pulse Ox Last 24 Hr 97.8 F-98.6 F 63-82 17-18 101-122/63-82 99-100 PHYSICAL EXAM GENERAL: The patient is awake, alert, and fully oriented, in no acute distress. LUNGS: Breath sounds equal, clear to auscultation bilaterally, no wheezes, no crackles, no accessory muscle use. HEART: Regular rate and rhythm, S1, S2 without murmur, rub or gallop. ABDOMEN: Soft, not tender, not distended EXTREMITIES: 2+ pulses, warm, well-perfused, no edema. NEUROLOGICAL: Cranial nerves II through XII grossly intact. Normal speech LABS CBCD WBC 8.1 K/mm3 (4.0-10.8) 03/03/19 09:00 RBC 4.63 M/mm3 (4.00-5.60) 03/03/19 09:00 Hgb 14.3 GM/dl (11.7-16.9) 03/03/19 09:00 Hct 43.3 % (35.4-49) 03/03/19 09:00 MCV 93.4 fl (80-96) 03/03/19 09:00 MCHC 33.0 g/dl (32.0-35.9) 03/03/19 09:00 RDW 11.9 % (11.9-15.9) 03/03/19 09:00 Plt Count 210 K/MM3 (134-434) 03/03/19 09:00 MPV 9.8 fl (7.5-11.1) 03/03/19 09:00 CMP Sodium 140 mmol/L (136-145) 03/05/19 07:00 Potassium 3.3 mmol/L (3.5-5.1) L 03/05/19 07:00 Chloride 108 mmol/L (98-107) H 03/05/19 07:00 Carbon Dioxide 27 mmol/L (21-32) 03/05/19 07:00 Anion Gap 5 MMOL/L (8-16) L 03/05/19 07:00 BUN 2.0 mg/dl (7-18) L* 03/05/19 07:00 Creatinine 1.2 mg/dl (0.55-1.3) 03/05/19 07:00 Calcium 8.7 mg/dl (8.5-10) 03/05/19 07:00 Total Bilirubin 0.7 mg/dl (0.2-1) 03/03/19 09:20 AST 11 U/L (15-37) L 03/03/19 09:20 ALT 12 U/L (13-61) L 03/03/19 09:20 Alkaline Phosphatase 65 U/L (45-117) 03/03/19 09:20 Total Protein 6.6 g/dl (6.4-8.2) 03/03/19 09:20 Albumin 3.4 g/dl (3.4-5.0) 03/03/19 09:20 HOSPITAL COURSE: Date of Admission:03/01/19 Date of Discharge: 03/06/19 Pre hospital course This is a 28 y/o man with a PMHx of colitis and chronic constipation. Presented to the ED with intermittent lower abdominal pain with constipation x several days. He reports taking a laxative and increasing his fiber intake with minimal results-small amount of stool. Patient reports having continued lower abdominal pressure, worse with movement. Patient denies melena, hematochezia. Patient denies fever, chills, cough, SOB, CP, palpitations, N/V, dysuria. ER course (1) CTAP: acute sigmoid diverticulitis with localized perforation, no abscess (2) WBC 14.2 (3) K 3.4 Subsequent hospital course 28 year-old male with a PMH significant for one previous episode of colitis x 4 years ago. Admitted for acute diverticulitis. Acute sigmoid diverticulitis with localized perforation --afebrile, leukocytosis present on admission resolved --completed 5-day course of Zosyn, discharged on augmentin and metronidazole for an additional 8 days of treatment --followup with GI as outpatient Minutes to complete discharge: 35 Discharge Summary Problems reviewed: Yes Reason For Visit: DIVERTICULITIS Current Active Problems Diverticulitis (Acute) Condition: Improved - Instructions Diet, Activity, Other Instructions: Two prescriptions have been sent to your pharmacy, one for augmentin, one for metronidazole. Both are antibiotics. Take thse medications as directed. It is recommended you follow up with your pulp tester, Dr. France, in [place] within 1-2 weeks of your discharge. You will likely need a colonoscopy in about 6 weeks. Return to the emergency department for any new or worsening symptoms. Referrals: Mark France [Non Staff, Medical] - Disposition: HOME - Home Medications Comprehensive Discharge Medication List: Ambulatory Orders Amoxicillin/Potassium Clav [Augmentin 875-125 Tablet] 1 each PO BID #16 tablet 03/04/19 Metronidazole 500 mg PO TID #24 tablet 03/04/19 This patient is new to me today: No Emergency Visit: Yes ED Registration Date: 03/01/19 Care time: The patient presented to the Emergency Department on the above date and was hospitalized for further evaluation of their emergent condition. Critical Care patient: No - Discharge Referral Referred to [facility] Med P.C.: No
== END 2019-03-06 12:00 | disposition home or self-care (01) | DRG 244 ==
LOC: FER 17:06 → FM/S 21:20
PROVIDERS: ADMIT Internal Medicine; ATTEND Nurse Practitioner Acute Care
DX: K57.20 Diverticulitis of large intestine with perforation and abscess without bleeding (principal); K59.00 Constipation, unspecified; K76.0 Fatty (change of) liver, not elsewhere classified
CPT/HCPCS: 36415; 74177-TC; 80048; 80053; 80076; 81003; 82272; 83690; 83735; 84100; 85025; 87086; 99283-25; J7030; Q9967

== ENCOUNTER 2019-03-17 23:32 | Emergency (ER) | payer OTHER ==
[2019-03-17 23:43] VITALS: BP 132/100; PULSE 77; TEMP 97.7; BMI 22.1
--- NOTE | 2019-03-17 23:45 | PDOC ---
History of Present Illness - General Chief Complaint: Colic Stated Complaint: TO BE CHECKED FOR DIVERTICULITIS Time Seen by Provider: 03/17/19 23:43 History Source: Patient Exam Limitations: No Limitations - History of Present Illness Initial Comments: 03/18/19 04:40 skinny stool, passing gas. recently treated for diverticulitis with micro perf with abx presents now with skinny stool, passing gas, some abd bloating Timing/Duration: 1 week Severity: moderate Modifying Factors: worse with: eating Associated Symptoms: denies: fever/chills, loss of appetite, nausea/vomiting Past History - Past Medical History Allergies/Adverse Reactions: Allergies Allergy/AdvReac Type Severity Reaction Status Date / Time No Known Allergies Allergy Verified 03/17/19 23:35 Home Medications: Ambulatory Orders Amoxicillin/Potassium Clav [Augmentin 875-125 Tablet] 1 each PO BID #16 tablet 03/04/19 Metronidazole 500 mg PO TID #24 tablet 03/04/19 COPD: No GI Disorders: Yes (COLITIS) - Psycho Social/Smoking Cessation Hx Smoking History: Never smoked Have you smoked in the past 12 months: No Information on smoking cessation initiated: No Hx Alcohol Use: No Drug/Substance Use Hx: No Substance Use Type: None Hx Substance Use Treatment: No Review of Systems - Review of Systems All Other Systems: Reviewed and Negative *Physical Exam - Vital Signs Last Vital Signs Temp Pulse Resp BP Pulse Ox 97.7 F 77 16 132/100 100 03/17/19 23:39 03/17/19 23:39 03/17/19 23:39 03/17/19 23:39 03/17/19 23:39 - Physical Exam General Appearance: Yes: Nourished, Appropriately Dressed HEENT: positive: Normal Voice Neck: negative: Lymphadenopathy (R), Lymphadenopathy (L) Respiratory/Chest: positive: Normal Breath Sounds Cardiovascular: positive: Regular Rhythm Gastrointestinal/Abdominal: positive: Normal Bowel Sounds, Soft. negative: Tender, Decreased BS, Protuberent, Distended, Tenderness, Hernia, Mass Lymphatic: negative: Adenopathy Musculoskeletal: positive: Normal Inspection Extremity: positive: Normal Capillary Refill Integumentary: positive: Normal Color, Dry Neurologic: positive: Fully Oriented Medical Decision Making - Medical Decision Making 03/18/19 04:42 ? abx reaction no diarrhea nor abd pain so will not pursue cdif abd nontender so doubt recurrent diverticulitis or per abd not distended and no upper GI sympotms so doubt obstruction pt to monitor symptoms at home Discharge - Discharge Information Problems reviewed: Yes Clinical Impression/Diagnosis: Antibiotic enterocolitis Condition: Stable Disposition: HOME - Follow up/Referral - Patient Discharge Instructions - Post Discharge Activity
== END 2019-03-17 23:49 | disposition home or self-care (01) ==
LOC: FER 23:32
DX: K52.89 Other specified noninfective gastroenteritis and colitis (principal)
CPT/HCPCS: 99281-25

== ENCOUNTER 2020-06-14 23:35 | Emergency (ER) | payer OTHER ==
[2020-06-15] MEDS ORDERED: ALPRAZolam 1 MG TABLET PO STA (00:15)
[2020-06-15] MEDS ORDERED: ALPRAZolam 0.25 MG TABLET ONE (00:28)
[2020-06-15 00:43] VITALS: BP 141/101; PULSE 122; TEMP 100.2; BMI 21.7
== END 2020-06-15 01:11 | disposition home or self-care (01) ==
LOC: FER 23:35
DX: R07.89 Other chest pain (principal)
CPT/HCPCS: 36415; 82550; 84484; 93005; 99284-25

== ENCOUNTER 2020-10-12 21:22 | Inpatient (IN) | payer OTHER ==
[2020-10-12] MEDS ORDERED: SODIUM CHLORIDE 1,000 ML IV ONE (21:46)
[2020-10-12 22:37] LABS: BASO % 0.3 % (0-2.0); EOS % 0.1 % (0-4.5); HEMOGLOBIN 16.5 GM/dl (11.7-16.9); LYMPH % 5.1 % (8-40); MCH 32.3 pg (25.7-33.7); MCHC 35.2 g/dl (32.0-35.9); MEAN CELL VOLUME 91.8 fl (80-96); MEAN PLT VOLUME 8.8 fl (7.5-11.1); NEUT % 84.5 % (42.8-82.8); PLATELET COUNT 214 10^3/uL (134-434); RBC 5.13 M/mm3 (4.00-5.60); WHITE BLOOD COUNT 16.9 K/mm3 (4.0-10.8)
[2020-10-12 22:44] LABS: ALBUMIN 4.3 g/dl (3.4-5.0); BILIRUBIN,TOTAL 2.1 mg/dl (0.2-1); CALCIUM 9.3 mg/dl (8.5-10); CREATININE 1.1 mg/dl (0.55-1.3); TOT PROT 7.8 g/dl (6.4-8.2)
[2020-10-13] MEDS ORDERED: PIPERACILLIN/TAZOB 4.5 GM 4.5 GM in DEXTROSE 5%-WATER 100 ML IVPB ONE (00:06)
[2020-10-13] MEDS ORDERED: SODIUM CHLORIDE 1,000 ML IV SCH (00:15)
[2020-10-13] MEDS ORDERED: PIPERACILLIN/TAZOBACTAM 4.5 GM VIAL IVPB ONE ×4 (00:19→13:51)
[2020-10-13] MEDS ORDERED: ACETAMINOPHEN 1000 MG/100 ML VIAL (NON FORMULARY) IVPB PRN (01:31)
[2020-10-13 03:34] LABS: EPI CELLS 12 /uL (0-25.1); HYALINE CASTS 21 /uL (0-3.1); URINE APPEARANCE CLOUDY; URINE BACTERIA 46 /uL (0-1359); URINE BILIRUBIN NEGATIVE (NEGATIVE); URINE COLOR ORANGE; URINE GLUCOSE (UA) NEGATIVE (NEGATIVE); URINE KETONE 1+ (NEGATIVE); URINE LEUK ESTERASE NEGATIVE (NEGATIVE); URINE NITRITE NEGATIVE (NEGATIVE); URINE PROTEIN 1+ (NEGATIVE); URINE RBC 20 /uL (0-23.9)
[2020-10-13 04:31] LABS: URINE WBC 68.8 /uL (0-25.8)
[2020-10-13 06:12] VITALS: BMI 20.2
[2020-10-13] MEDS ORDERED: DEXTROSE 5%-WATER 100 ML IVPB ONE ×3 (06:18→13:50)
[2020-10-13] MEDS: PIPERACILLIN/TAZOB 4.5 GM 4.5 GM in DEXTROSE 5%-WATER 100 ML IVPB SCH ×2 (06:29→14:13)
[2020-10-13 07:55] LABS: BASO % 0.3 % (0-2.0); EOS % 0.2 % (0-4.5); HEMATOCRIT 40.9 % (35.4-49); HEMOGLOBIN 14.2 GM/dl (11.7-16.9); LYMPH % 11.8 % (8-40); MCHC 34.7 g/dl (32.0-35.9); MEAN CELL VOLUME 92.1 fl (80-96); MEAN PLT VOLUME 9.1 fl (7.5-11.1); MONO % 9.9 % (3.8-10.2); NEUT % 77.8 % (42.8-82.8); PLATELET COUNT 204 10^3/uL (134-434); RBC 4.44 M/mm3 (4.00-5.60); RDW 12.2 % (11.9-15.9); WHITE BLOOD COUNT 14.6 K/mm3 (4.0-10.8)
[2020-10-13 08:11] LABS: ALBUMIN 3.6 g/dl (3.4-5.0); CALCIUM 8.6 mg/dl (8.5-10); CREATININE 1.1 mg/dl (0.55-1.3); TOT PROT 6.5 g/dl (6.4-8.2)
[2020-10-13] MEDS: ENOXAPARIN NA (PORCINE) 40 MG/0.4 ML DISP.SYRIN SQ SCH (15:27)
[2020-10-13] MEDS: DEXTROSE 5%-0.45% SALINE 1,000 ML IV SCH (15:27)
[2020-10-13] MEDS ORDERED: PIPERACILLIN/TAZOBACTAM 3.375 GM VIAL IVPB ONE (21:21)
[2020-10-13] MEDS ORDERED: DEXTROSE 5%-WATER - 50 ML IVPB ONE (21:21)
[2020-10-13] MEDS ORDERED: FLUoxetine HCL 20 MG CAPSULE PO ONE (21:25)
[2020-10-13] MEDS ORDERED: ACETAMINOPHEN 1000 MG/100 ML VIAL (NON FORMULARY) IVPB ONE (21:27)
[2020-10-13] MEDS: PIPERACILLIN/TAZOB 3.375 GM 3.375 GM in DEXTROSE 5%-WATER - 50 ML IVPB SCH (21:35)
[2020-10-14] MEDS ORDERED: PIPERACILLIN/TAZOBACTAM 3.375 GM VIAL IVPB ONE ×3 (05:44→20:59)
[2020-10-14] MEDS ORDERED: DEXTROSE 5%-WATER - 50 ML IVPB ONE ×3 (05:44→21:00)
[2020-10-14] MEDS: PIPERACILLIN/TAZOB 3.375 GM 3.375 GM in DEXTROSE 5%-WATER - 50 ML IVPB SCH ×3 (05:52→21:22)
[2020-10-14 08:22] LABS: BASO % 0.7 % (0-2.0); EOS % 1.8 % (0-4.5); HEMATOCRIT 39.7 % (35.4-49); HEMOGLOBIN 13.9 GM/dl (11.7-16.9); LYMPH % 15.7 % (8-40); MCH 32.5 pg (25.7-33.7); MEAN CELL VOLUME 92.7 fl (80-96); MEAN PLT VOLUME 8.6 fl (7.5-11.1); MONO % 10.2 % (3.8-10.2); NEUT % 71.6 % (42.8-82.8); PLATELET COUNT 198 10^3/uL (134-434); RBC 4.28 M/mm3 (4.00-5.60); RDW 12.1 % (11.9-15.9); WHITE BLOOD COUNT 8.7 K/mm3 (4.0-10.8)
[2020-10-14 08:36] LABS: ALBUMIN 3.3 g/dl (3.4-5.0); BILIRUBIN,TOTAL 1.4 mg/dl (0.2-1); CALCIUM 8.5 mg/dl (8.5-10); CREATININE 0.9 mg/dl (0.55-1.3); MAGNESIUM 1.9 mg/dL (1.8-2.4); TOT PROT 6.2 g/dl (6.4-8.2)
[2020-10-14] MEDS ORDERED: PIPERACILLIN/TAZOB 4.5 GM 4.5 GM in DEXTROSE 5%-WATER 100 ML IVPB SCH (09:00)
[2020-10-14] MEDS: FLUoxetine HCL 20 MG CAPSULE PO SCH (09:30)
[2020-10-14] MEDS: ENOXAPARIN NA (PORCINE) 40 MG/0.4 ML DISP.SYRIN SQ SCH (09:35)
[2020-10-14] MEDS: DEXTROSE 5%-0.45% SALINE 1,000 ML IV SCH (14:21)
[2020-10-15] MEDS ORDERED: DEXTROSE 5%-WATER - 50 ML IVPB ONE ×3 (05:08→21:14)
[2020-10-15] MEDS ORDERED: PIPERACILLIN/TAZOBACTAM 3.375 GM VIAL IVPB ONE ×3 (05:08→21:14)
[2020-10-15] MEDS: PIPERACILLIN/TAZOB 3.375 GM 3.375 GM in DEXTROSE 5%-WATER - 50 ML IVPB SCH ×3 (05:45→21:43)
[2020-10-15 08:02] LABS: BASO % 1.1 % (0-2.0); EOS % 3.3 % (0-4.5); HEMATOCRIT 40.5 % (35.4-49); HEMOGLOBIN 13.9 GM/dl (11.7-16.9); MCH 31.7 pg (25.7-33.7); MCHC 34.3 g/dl (32.0-35.9); MEAN CELL VOLUME 92.4 fl (80-96); MEAN PLT VOLUME 8.9 fl (7.5-11.1); MONO % 9.9 % (3.8-10.2); NEUT % 62.7 % (42.8-82.8); PLATELET COUNT 218 10^3/uL (134-434); RBC 4.38 M/mm3 (4.00-5.60); RDW 12.1 % (11.9-15.9); WHITE BLOOD COUNT 5.5 K/mm3 (4.0-10.8)
[2020-10-15 08:09] LABS: ALBUMIN 3.3 g/dl (3.4-5.0); BILIRUBIN,TOTAL 1.4 mg/dl (0.2-1); CALCIUM 8.6 mg/dl (8.5-10); CREATININE 0.9 mg/dl (0.55-1.3); MAGNESIUM 1.8 mg/dL (1.8-2.4); TOT PROT 6.3 g/dl (6.4-8.2)
[2020-10-15] MEDS: ENOXAPARIN NA (PORCINE) 40 MG/0.4 ML DISP.SYRIN SQ SCH (09:57)
[2020-10-15] MEDS: POTASSIUM CHLORIDE TABS 20 MEQ TABLET.ER (FP) PO SCH ×2 (09:57→16:23)
[2020-10-15] MEDS: FLUoxetine HCL 20 MG CAPSULE PO SCH (09:57)
[2020-10-15] MEDS: DEXTROSE 5%-0.45% SALINE 1,000 ML IV SCH (16:24)
[2020-10-16] MEDS ORDERED: DEXTROSE 5%-WATER - 50 ML IVPB ONE ×3 (05:54→21:29)
[2020-10-16] MEDS ORDERED: PIPERACILLIN/TAZOBACTAM 3.375 GM VIAL IVPB ONE ×3 (05:54→21:29)
[2020-10-16] MEDS: PIPERACILLIN/TAZOB 3.375 GM 3.375 GM in DEXTROSE 5%-WATER - 50 ML IVPB SCH ×3 (06:09→21:36)
[2020-10-16 08:03] LABS: BASO % 1.6 % (0-2.0); EOS % 2.8 % (0-4.5); HEMATOCRIT 39.8 % (35.4-49); HEMOGLOBIN 13.8 GM/dl (11.7-16.9); LYMPH % 21.1 % (8-40); MCHC 34.7 g/dl (32.0-35.9); MEAN CELL VOLUME 92.1 fl (80-96); MEAN PLT VOLUME 8.9 fl (7.5-11.1); MONO % 9.2 % (3.8-10.2); NEUT % 65.3 % (42.8-82.8); PLATELET COUNT 227 10^3/uL (134-434); RBC 4.32 M/mm3 (4.00-5.60); RDW 12.3 % (11.9-15.9); WHITE BLOOD COUNT 6.2 K/mm3 (4.0-10.8)
[2020-10-16 08:14] LABS: ALBUMIN 3.4 g/dl (3.4-5.0); BILIRUBIN,TOTAL 1.1 mg/dl (0.2-1); CALCIUM 8.7 mg/dl (8.5-10); CREATININE 1.2 mg/dl (0.55-1.3); MAGNESIUM 1.8 mg/dL (1.8-2.4); TOT PROT 6.2 g/dl (6.4-8.2)
[2020-10-16] MEDS: ENOXAPARIN NA (PORCINE) 40 MG/0.4 ML DISP.SYRIN SQ SCH ×2 (10:01→10:03)
[2020-10-16] MEDS: FLUoxetine HCL 20 MG CAPSULE PO SCH (10:01)
[2020-10-16] MEDS: DEXTROSE 5%-0.45% SALINE 1,000 ML IV SCH (18:10)
[2020-10-17] MEDS: DEXTROSE 5%-0.45% SALINE 1,000 ML IV SCH ×2 (05:03→16:11)
[2020-10-17] MEDS ORDERED: PIPERACILLIN/TAZOBACTAM 3.375 GM VIAL IVPB ONE ×3 (05:56→22:16)
[2020-10-17] MEDS ORDERED: DEXTROSE 5%-WATER - 50 ML IVPB ONE ×3 (05:56→22:16)
[2020-10-17] MEDS: PIPERACILLIN/TAZOB 3.375 GM 3.375 GM in DEXTROSE 5%-WATER - 50 ML IVPB SCH ×3 (06:15→22:39)
[2020-10-17] MEDS: FLUoxetine HCL 20 MG CAPSULE PO SCH (09:44)
[2020-10-17] MEDS: ENOXAPARIN NA (PORCINE) 40 MG/0.4 ML DISP.SYRIN SQ SCH (11:19)
[2020-10-18] MEDS ORDERED: DEXTROSE 5%-WATER - 50 ML IVPB ONE (06:20)
[2020-10-18] MEDS ORDERED: PIPERACILLIN/TAZOBACTAM 3.375 GM VIAL IVPB ONE (06:20)
[2020-10-18] MEDS: PIPERACILLIN/TAZOB 3.375 GM 3.375 GM in DEXTROSE 5%-WATER - 50 ML IVPB SCH (06:22)
[2020-10-18 08:15] VITALS: BP 117/68; PULSE 67; TEMP 97.8
[2020-10-18] MEDS: FLUoxetine HCL 20 MG CAPSULE PO SCH (09:54)
== END 2020-10-18 11:15 | disposition home or self-care (01) | DRG 244 ==
LOC: FER 21:22 → FM/S 10-13 02:48
PROVIDERS: ADMIT Internal Medicine; ATTEND Nurse Practitioner Family
DX: K57.32 Diverticulitis of large intestine without perforation or abscess without bleeding (principal); R82.81 Pyuria; E87.6 Hypokalemia
CPT/HCPCS: 36415; 74177-TC; 80053; 81003; 82248; 82272; 83605; 83735; 85025; 87040; 87045; 87046; 87086; 87324; 87449; 99285-25; C9803; J0131; Q9967; U0003; U0005

== ENCOUNTER 2023-10-25 12:59 | Emergency (ER) | payer OTHER ==
[2023-10-25 13:17] VITALS: BP 124/91; PULSE 101; RESP 18; TEMP 98.9; BMI 22.8
[2023-10-25 14:41] LABS: HEMATOCRIT 51.4 % (35.4-49); HEMOGLOBIN 17.5 G/dL (11.7-16.9); MCH 31.5 pg (25.7-33.7); MEAN CELL VOLUME 92.7 fl (80-96); MEAN PLT VOLUME 8.7 fl (7.5-11.1); PLATELET COUNT 216.1 10^3/uL (134-434); RBC 5.54 10^6/uL (4.00-5.60); RDW 12.6 % (11.9-15.9); WHITE BLOOD COUNT 6.4 10^3/uL (4.0-10.8)
[2023-10-25 14:52] LABS: ALK PHOS 82 U/L (45-117); ANION GAP 9 mmol/L (4-13); BILIRUBIN,TOTAL 1.2 mg/dl (0.2-1); CALCIUM 10.1 mg/dl (8.5-10.1); CHLORIDE 104 mmol/L (98-107); CO2 27 mmol/L (21-32); CREATININE 1.1 mg/dl (0.6-1.3); GLUCOSE,RANDOM 86 mg/dl (74-106); POTASSIUM 4.3 mmol/L (3.5-5.1); SGOT/AST 15 U/L (15-37); SGPT/ALT 16 U/L (7-52); SODIUM 140 mmol/L (136-145); TOT PROT 7.5 g/dl (6.4-8.2)
[2023-10-25] MEDS: SODIUM CHLORIDE 1,000 ML IV STA (16:00)
[2023-10-25 16:29] LABS: PLATELET ESTIMATE ADEQUATE
== END 2023-10-25 17:12 | disposition home or self-care (01) ==
LOC: FER 12:59
PROC: 3E0337Z Introduction of Electrolytic and Water Balance Substance into Peripheral Vein, Percutaneous Approach (ICD-10-PCS; principal; 2023-10-25)
DX: K59.00 Constipation, unspecified (principal)
CPT/HCPCS: 36415; 74177-TC; 80053; 85027; 99284-25; Q9967